=== PATIENT | female | born 1980 | race African-American/Black ===

== ENCOUNTER 2017-07-02 07:56 | Day surgery (SDC) | payer BC, OTHER ==
[2017-06-29 17:04] VITALS: BMI 39.4
--- NOTE | 2017-07-01 18:41 | HP ---
History & Physical Update - History History: No Change (no change from my HP on 06/29/17) - Physical Physical: No Change - Assessment Assessment: No Change - Plan Plan: No Change (No update to my HP)
[2017-07-02] MEDS ORDERED: MIDAZOLAM HCL 2 MG/2 ML SINGLE DOSE VIAL ONE ×2 (09:27→09:29)
[2017-07-02] MEDS ORDERED: ACETAMINOPHEN 325 MG TABLET (FP) PO PRN (09:36)
[2017-07-02] MEDS ORDERED: IBUPROFEN 400 MG TABLET (FP) PO PRN (09:36)
--- NOTE | 2017-07-02 09:39 | OP ---
Operative Note - Note: Operative Date: 07/02/17 Pre-Operative Diagnosis: Submucosal myoma. Menorrhagia Operation: Hysteroscopic myomectomy. Suction DC Findings: anterior myoma Post-Operative Diagnosis: Same as Pre-op Surgeon: Barbara Bowden Anesthesia: General Estimated Blood Loss (mls): 20 Operative Report Dictated: Yes
[2017-07-02] MEDS ORDERED: SUCCINYLCHOLINE CHLORIDE 200 MG/10 ML VIAL ONE (09:51)
[2017-07-02] MEDS ORDERED: PROPOFOL 20 ML ONE (09:51)
[2017-07-02] MEDS ORDERED: ROCURONIUM BROMIDE 50 MG/5 ML VIAL ONE (09:51)
[2017-07-02] MEDS ORDERED: DEXAMETHASONE SOD PHOSPHATE 4 MG/1 ML VIAL ONE (09:52)
[2017-07-02] MEDS ORDERED: fentaNYL CITRATE 250 MCG/5 ML VIAL ONE (09:52)
[2017-07-02] MEDS ORDERED: KETOROLAC TROMETHAMINE 30 MG/1 ML VIAL ONE (09:52)
[2017-07-02] MEDS ORDERED: LIDOCAINE HCL/PF 2% SDV 5ML VIAL ONE (09:52)
[2017-07-02] MEDS ORDERED: ceFAZolin SODIUM 1 GM VIAL IVPB ONE (10:10)
[2017-07-02] MEDS ORDERED: GLYCOPYRROLATE 0.2 MG/1 ML VIAL ONE ×2 (10:29)
[2017-07-02] MEDS ORDERED: NEOSTIGMINE METHYLSULFATE 0.5 MG/ML - 10 ML MDV ONE (10:29)
[2017-07-02] MEDS ORDERED: oxyCODONE HCL 5 MG TABLET PO PRN (10:47)
[2017-07-02] MEDS ORDERED: PROMETHAZINE HCL 25 MG/1 ML VIAL IVPUSH PRN (10:47)
[2017-07-02] MEDS ORDERED: ONDANSETRON 4 MG/2 ML VIAL IVPUSH PRN (10:47)
--- NOTE | 2017-07-02 10:51 | OP ---
DATE OF OPERATION: 07/02/2017 PREOPERATIVE DIAGNOSIS: Submucosal myoma and menorrhagia. OPERATION: Hysteroscopic myomectomy, suction dilation and curettage. POSTOPERATIVE DIAGNOSIS: Submucosal myoma, menorrhagia, and endometrial polyps. DESCRIPTION OF PROCEDURE: The patient was taken to the operating room and placed in dorsal lithotomy position, prepped and draped in the usual sterile fashion. A time-out was performed in accordance with hospital regulation. Speculum was placed in the vagina. Anterior lip of the cervix was grasped with a single-tooth tenaculum. The cervix was then dilated to accommodate the operative hysteroscope. Operative hysteroscope was then inserted and endometrial polyps were seen, and hysteroscopic removal of endometrial polyps was done. Unroofing of the endometrial revealed a submucosal myoma anteriorly, so hysteroscopic removal of anterior myoma was done. Endometrial cavity appeared to be better shape and more normal after hysteroscopic removal of anterior myoma. This myoma was also seen intramurally as well. Suction dilation and curettage was performed. All contents of the endometrium was removed and submitted to Pathology. The patient tolerated the procedure well and was taken to the recovery room in stable condition. Estimated blood loss 20 mL. Katie [id number]
[2017-07-02] MEDS ORDERED: LACTATED RINGERS SOLUTION 1,000 ML IV SCH (11:00)
[2017-07-02 12:12] VITALS: TEMP 97.8
[2017-07-02] MEDS ORDERED: oxyCODONE HCL 5 MG TABLET PO ONE (13:10)
[2017-07-02 16:10] VITALS: BP 117/58; PULSE 87
--- NOTE | 2017-07-03 13:52 | PATH ---
Surgical Pathology Report Patient Name: GARTH GUDINO [facility]. Rec. #: [id number] /Age/Gender: 1980 (Age: 37) / F Account: [id number] Location: [facility] SURGICAL Taken: 07/02/2017 Received: 07/02/2017 Reported: 07/03/2017 Physicians: Barbara Bowden M.D. Specimen(s) Received CONTENTS OF UTERUS Clinical History Menorrhagia, submucosal myoma Final Diagnosis UTERUS, HYSTEROSCOPIC MYOMECTOMY AND CURETTING: MYOMETRIAL TISSUE WITH ADMIXED ENDOMETRIAL GLANDS SUGGESTIVE OF ADENOMYOSIS, AND PORTIONS OF PROLIFERATIVE ENDOMETRIUM. Electronically Signed Joe Harris M.D. Gross Description Received in formalin labeled "contents of uterus," is a 3 g, 3.5 x 2.6 x 0.3 cm aggregate of [place], rubbery and soft tissue fragments. The formalin is filtered and the specimen is entirely submitted in 2 cassettes. /07/02/2017 saudi07/02/2017
== END 2017-07-02 14:45 | disposition home or self-care (01) ==
LOC: JASU-SURG 07:56
PROVIDERS: ATTEND Obstetrics & Gynecology
PROC: 0UB98ZZ Excision of Uterus, Via Natural or Artificial Opening Endoscopic (ICD-10-PCS; principal; 2017-07-02 09:30)
PROC: 0UDB8ZX Extraction of Endometrium, Via Natural or Artificial Opening Endoscopic, Diagnostic (ICD-10-PCS; 2017-07-02 09:30)
DX: D25.0 Submucous leiomyoma of uterus (principal); N92.0 Excessive and frequent menstruation with regular cycle; N84.0 Polyp of corpus uteri
CPT/HCPCS: 88305-TC; 94760